=== PATIENT | male | born 2000 | race African-American/Black ===

== ENCOUNTER 2023-09-05 17:53 | Emergency (ER) | payer MEDICAID, OTHER ==
[~2023-09-05] VITALS: Ht 177.8 cm; Wt 73.0 kg
[2023-09-05] MEDS: NALOXONE HCL 1MG/ML 2ML SYRINGE IM ONE (18:36)
[2023-09-05 19:00] VITALS: PULSE 91; RESP 14; O2SAT 93
[2023-09-05 20:09] VITALS: BP 119/62; PULSE 85; RESP 16; O2SAT 98
[2023-09-06] MEDS ORDERED: SULF800T23 PO (05:29)
== END 2023-09-05 20:39 | disposition home or self-care (01) ==
LOC: ER 17:53 → EDBD 17:53 → ER 20:20
DX: F19.10 Other psychoactive substance abuse, uncomplicated (principal); R41.82 Altered mental status, unspecified; F10.10 Alcohol abuse, uncomplicated; Y90.8 Blood alcohol level of 240 mg/100 ml or more
CPT/HCPCS: 96372; 99283; J2310

== ENCOUNTER 2023-09-06 03:10 | Emergency (ER) | payer MEDICAID ==
[~2023-09-06] VITALS: Ht 170.2 cm; Wt 74.0 kg
[2023-09-06 04:53] LABS: Urine Bacteria NONE SEEN /hpf (None Seen); Urine Blood Negative /uL (Negative); Urine Clarity HAZY (Clear); Urine Color Yellow (Yellow); Urine Mucus FEW (None Seen); Urine Protein, UAD TRACE (Negative); Urine Specific Gravity 1.029 (1.001-1.035); Urine Urobilinogen Normal (Negative); Urine WBC 5 /hpf (0 - 3); Urine pH 6.5 (5.0-8.0)
[2023-09-06] MEDS ORDERED: SULF800T23 PO (05:29)
[2023-09-06] MEDS: cefTRIAXone SOD 1,000 MG VL IM ONE (05:30)
[2023-09-06 05:40] VITALS: BP 129/65; PULSE 64; RESP 18; TEMP 97.6; O2SAT 99
[2023-09-08 09:07] LABS: Chlamydia Trachomatis, NAA Positive (Negative); Neisseria gonorrhoeae, NAA Negative (Negative)
== END 2023-09-06 06:04 | disposition home or self-care (01) ==
LOC: ER 03:10
DX: N39.0 Urinary tract infection, site not specified (principal); F12.10 Cannabis abuse, uncomplicated
CPT/HCPCS: 81001; 87491; 87591; 96372; 99283; J0696